=== PATIENT | female | born 1960 | race Caucasian/White ===

== ENCOUNTER 2021-09-03 21:18 | Inpatient (IN) | payer BC ==
[2021-09-03] MEDS ORDERED: Bisacodyl 5 MG TAB PO PRN (23:48)
[2021-09-03] MEDS ORDERED: Senokot S 8.6-50 MG TAB PO PRN (23:48)
[2021-09-03] MEDS ORDERED: HYDROcodone/Acetaminophen 7.5/325 mg Tablet PO PRN (23:48)
[2021-09-03] MEDS ORDERED: Ondansetron PF 4 MG/2 ML Vial IVP PRN (23:48)
[2021-09-03] MEDS ORDERED: hydrALAZINE 20 MG/ML VIAL SLOW IVP PRN (23:52)
[2021-09-03] MEDS ORDERED: Melatonin 3 MG TAB PO PRN (23:52)
[2021-09-03] MEDS ORDERED: Albuterol 200 PUFF (6.7GM INHALER) INH PRN (23:59)
[2021-09-04 00:44] VITALS: BMI 53.6
[2021-09-04] MEDS ORDERED: FLU VACC QS2021-22(6MOS UP)/PF 60 MCG/0.5 ML SYRINGE IM ONE (01:00)
[2021-09-04] MEDS ORDERED: Dextrose 5% in Water 1,000 ML IV PRN (01:10)
[2021-09-04] MEDS ORDERED: Dextrose 50% Abboject 50 ML SYRINGE SLOW IVP PRN (01:10)
[2021-09-04] MEDS ORDERED: Potassium Chloride 20 MEQ TAB PO SCH (01:30)
[2021-09-04] MEDS ORDERED: Pharmacy to Dose REMDESIVIR IVPB PRN (01:40)
[2021-09-04 02:18] LABS: Lactic Acid 1.2 mmol/L (0.5-2.2)
[2021-09-04 02:26] LABS: Troponin I 0.013 ng/mL (< 0.028)
[2021-09-04 05:27] LABS: #Lymphocytes 1.2 thou/uL (1.20-3.40); #Monocytes 0.7 thou/uL (0.11-0.59); #Neutrophils 13.6 thou/uL (1.40-6.50); %Basophils 0.2 % (0.0-1.0); %Eosinophils 0.2 % (0.0-10.0); %Lymphocytes 7.6 % (21.0-51.0); %Monocytes 4.7 % (0.0-10.0); %Neutrophils 87.4 % (42.0-75.0); Hemoglobin 13.4 g/dL (12.0-16.0); Mean Corpuscular HGB CONC 32.7 g/dL (32.0-36.0); Mean Corpuscular Volume 94.9 fL (78.0-98.0); Mean Platelet Volume 7.5 fL (7.4-10.4); Platelet Count 300 thou/uL (130-400); RBC Distribution Width 12.4 % (11.5-14.5); Red Blood Cell (RBC) Count 4.33 mill/uL (4.20-5.40); White Blood Cell (WBC) Count 15.6 thou/uL (4.8-10.8)
[2021-09-04 05:51] LABS: Hemoglobin A1c 7.4 % (4.0-6.0)
[2021-09-04 05:59] LABS: Troponin I 0.018 ng/mL (< 0.028)
[2021-09-04 06:01] LABS: ALT (SGPT) 37 U/L (8-55); AST (SGOT) 33 U/L (5-34); Albumin 3.1 g/dL (3.4-4.8); Alkaline Phosphatase 49 U/L (40-110); Anion Gap 14 mmol/L (10-20); BUN (Urea Nitrogen) 23 mg/dL (9.8-20.1); Bilirubin, Total 0.4 mg/dL (0.2-1.2); Calc. Creatinine Clearance 123 mL/min (70-130); Calcium 7.8 mg/dL (7.8-10.44); Carbon Dioxide 25 mmol/L (23-31); Cardiac Risk 3.2 (Less than 4.5); Chloride 104 mmol/L (98-107); Cholesterol 110 mg/dl (< 200 Desired); Globulin 2.8 g/dL (2.4-3.5); Glucose 408 mg/dL (80-115); HDL Cholesterol 34 mg/dL (>60 Neg Risk); LDL Cholesterol, Calculated 44 mg/dL; Potassium 3.5 mmol/L (3.5-5.1); Protein, Total 5.9 g/dL (5.8-8.1); Sodium 139 mmol/L (136-145); Triglycerides 158 mg/dL (Less than 150)
[2021-09-04] MEDS: Insulin Regular 300 UNITS/3 ML VIAL SC PRN ×4 (06:34→20:35)
[2021-09-04] MEDS: Cholecalciferol 1,000 UNITS (25 MCG) TAB PO SCH (08:41)
[2021-09-04] MEDS: Famotidine/PF 20 mg/2ml Vial SLOW IVP SCH (08:43)
[2021-09-04] MEDS: Ascorbic Acid 500 mg Chewable Tablet PO SCH (08:43)
[2021-09-04] MEDS: Guaifenesin DM 100-10/5 ML UDCUP PO PRN (08:43)
[2021-09-04] MEDS: Zinc Sulfate 220 MG CAP PO SCH (08:43)
[2021-09-04] MEDS: Enoxaparin Sodium 40 MG/0.4 ML SYRINGE SC SCH (08:44)
[2021-09-04] MEDS: Cefepime 2 GM in Sodium Chloride 0.9% 100 ML IVPB SCH ×2 (08:44→20:34)
[2021-09-04] MEDS: Dexamethasone 10 MG/ML VIAL SLOW IVP SCH ×2 (08:46→20:35)
[2021-09-04] MEDS: Acetaminophen 325 MG TAB PO PRN ×2 (08:47→16:46)
[2021-09-04] MEDS ORDERED: Lisinopril 20 MG TAB PO SCH (09:30)
[2021-09-04] MEDS ORDERED: Amlodipine 10 MG TAB PO SCH (09:30)
[2021-09-04] MEDS ORDERED: Lantus 1000 UNITS/10 ML VIAL SC SCH (09:45)
[2021-09-04] MEDS: Labetalol HCl 100 MG/20 ML VIAL SLOW IVP PRN (20:34)
[2021-09-04] MEDS: Simvastatin 10 MG TAB PO SCH (21:11)
[2021-09-05 05:43] LABS: Hemoglobin 13.7 g/dL (12.0-16.0); Lymphocytes 11 % (21-51); MDiff Complete? YES; Mean Corpuscular Hemoglobin 29.1 pg (27.0-31.0); Mean Corpuscular Volume 93.8 fL (78.0-98.0); Mean Platelet Volume 7.6 fL (7.4-10.4); Monocytes 9 % (0-10); Neutrophil 80 % (42-75); Platelet Count 355 thou/uL (130-400); Platelet Morphology Comment Appears Adequate; RBC Distribution Width 12.4 % (11.5-14.5); RBC Morphology Normal; Red Blood Cell (RBC) Count 4.72 mill/uL (4.20-5.40); White Blood Cell (WBC) Count 18.1 thou/uL (4.8-10.8)
[2021-09-05 05:44] LABS: Anion Gap 13 mmol/L (10-20); BUN (Urea Nitrogen) 21 mg/dL (9.8-20.1); Calc. Creatinine Clearance 153 mL/min (70-130); Calcium 8.1 mg/dL (7.8-10.44); Carbon Dioxide 25 mmol/L (23-31); Chloride 104 mmol/L (98-107); Glucose 301 mg/dL (80-115); Potassium 3.8 mmol/L (3.5-5.1); Sodium 138 mmol/L (136-145)
[2021-09-05] MEDS: Insulin Regular 300 UNITS/3 ML VIAL SC PRN ×4 (05:55→20:52)
[2021-09-05] MEDS: Cholecalciferol 1,000 UNITS (25 MCG) TAB PO SCH (08:04)
[2021-09-05] MEDS: Dexamethasone 10 MG/ML VIAL SLOW IVP SCH (08:05)
[2021-09-05] MEDS: Ascorbic Acid 500 mg Chewable Tablet PO SCH (08:05)
[2021-09-05] MEDS: Lisinopril 20 MG TAB PO SCH (08:05)
[2021-09-05] MEDS: Zinc Sulfate 220 MG CAP PO SCH (08:05)
[2021-09-05] MEDS: Famotidine/PF 20 mg/2ml Vial SLOW IVP SCH (08:06)
[2021-09-05] MEDS: Enoxaparin Sodium 40 MG/0.4 ML SYRINGE SC SCH (08:06)
[2021-09-05] MEDS: Amlodipine 10 MG TAB PO SCH (08:07)
[2021-09-05] MEDS: Cefepime 2 GM in Sodium Chloride 0.9% 100 ML IVPB SCH ×2 (08:07→21:04)
[2021-09-05] MEDS: Lantus 1000 UNITS/10 ML VIAL SC SCH ×2 (08:08→20:54)
[2021-09-05] MEDS ORDERED: Pharmacy to Dose BARICITINIB IVPB PRN (10:56)
[2021-09-05] MEDS ORDERED: Icosapent Ethyl 1 GM CAPSULE PO SCH (21:00)
[2021-09-05] MEDS: Icosapent Ethyl 1 GM CAPSULE PO SCH ×2 (21:03→21:39)
[2021-09-05] MEDS: Famotidine 20 MG TAB PO SCH (21:04)
[2021-09-05] MEDS: Enoxaparin Sodium 60 MG/0.6 ML SYRINGE SC SCH (21:06)
[2021-09-05] MEDS: Simvastatin 10 MG TAB PO SCH (22:40)
[2021-09-06 01:44] LABS: Vancomycin, Trough 7.4 ug/mL
[2021-09-06] MEDS: Labetalol HCl 100 MG/20 ML VIAL SLOW IVP PRN (03:45)
[2021-09-06 05:29] LABS: Mean Corpuscular HGB CONC 33.3 g/dL (32.0-36.0); Mean Corpuscular Hemoglobin 31.2 pg (27.0-31.0); Mean Corpuscular Volume 93.5 fL (78.0-98.0); Mean Platelet Volume 7.4 fL (7.4-10.4); Platelet Count 364 thou/uL (130-400); RBC Distribution Width 12.4 % (11.5-14.5); Red Blood Cell (RBC) Count 4.48 mill/uL (4.20-5.40)
[2021-09-06 05:54] LABS: Anion Gap 12 mmol/L (10-20); BUN (Urea Nitrogen) 21 mg/dL (9.8-20.1); Calc. Creatinine Clearance 163 mL/min (70-130); Calcium 7.9 mg/dL (7.8-10.44); Carbon Dioxide 24 mmol/L (23-31); Chloride 104 mmol/L (98-107); Glucose 252 mg/dL (80-115); Potassium 3.4 mmol/L (3.5-5.1); Sodium 137 mmol/L (136-145)
[2021-09-06] MEDS: Insulin Regular 300 UNITS/3 ML VIAL SC PRN ×4 (06:02→20:08)
[2021-09-06 06:03] LABS: Band 3 % (5-11); Lymphocytes 7 % (21-51); MDiff Complete? YES; Monocytes 12 % (0-10); Myelocyte 1 % (0-0); Neutrophil 77 % (42-75)
[2021-09-06] MEDS: Enoxaparin Sodium 60 MG/0.6 ML SYRINGE SC SCH ×2 (07:42→20:07)
[2021-09-06] MEDS: Lantus 1000 UNITS/10 ML VIAL SC SCH ×2 (07:43→20:08)
[2021-09-06] MEDS: Dexamethasone 10 MG/ML VIAL SLOW IVP SCH (07:43)
[2021-09-06] MEDS: Lisinopril 20 MG TAB PO SCH (07:44)
[2021-09-06] MEDS: Famotidine 20 MG TAB PO SCH ×2 (07:45→20:07)
[2021-09-06] MEDS: Zinc Sulfate 220 MG CAP PO SCH (07:45)
[2021-09-06] MEDS: Ascorbic Acid 500 mg Chewable Tablet PO SCH (07:45)
[2021-09-06] MEDS: Amlodipine 10 MG TAB PO SCH (07:45)
[2021-09-06] MEDS: Cholecalciferol 1,000 UNITS (25 MCG) TAB PO SCH (07:45)
[2021-09-06] MEDS: Icosapent Ethyl 1 GM CAPSULE PO SCH ×2 (07:46→20:07)
[2021-09-06] MEDS: Cefepime 2 GM in Sodium Chloride 0.9% 100 ML IVPB SCH (07:46)
[2021-09-06] MEDS: Simvastatin 10 MG TAB PO SCH (20:07)
[2021-09-07 05:49] LABS: Hemoglobin 13.7 g/dL (12.0-16.0); Mean Corpuscular HGB CONC 33.3 g/dL (32.0-36.0); Mean Corpuscular Hemoglobin 30.7 pg (27.0-31.0); Mean Corpuscular Volume 92.2 fL (78.0-98.0); Mean Platelet Volume 7.5 fL (7.4-10.4); Platelet Count 380 thou/uL (130-400); RBC Distribution Width 12.4 % (11.5-14.5); Red Blood Cell (RBC) Count 4.46 mill/uL (4.20-5.40); White Blood Cell (WBC) Count 16.9 thou/uL (4.8-10.8)
[2021-09-07 06:03] LABS: Anion Gap 10 mmol/L (10-20); BUN (Urea Nitrogen) 25 mg/dL (9.8-20.1); Calc. Creatinine Clearance 159 mL/min (70-130); Carbon Dioxide 27 mmol/L (23-31); Chloride 103 mmol/L (98-107); Glucose 237 mg/dL (80-115); Potassium 3.1 mmol/L (3.5-5.1); Sodium 137 mmol/L (136-145)
[2021-09-07] MEDS: Insulin Regular 300 UNITS/3 ML VIAL SC PRN ×4 (06:34→20:15)
[2021-09-07 08:29] LABS: Band 2 % (5-11); Lymphocytes 24 % (21-51); MDiff Complete? YES; Monocytes 5 % (0-10); Neutrophil 69 % (42-75); Nucleated RBC 1 % (0)
[2021-09-07] MEDS: Cholecalciferol 1,000 UNITS (25 MCG) TAB PO SCH (09:35)
[2021-09-07] MEDS: Ascorbic Acid 500 mg Chewable Tablet PO SCH (09:36)
[2021-09-07] MEDS: Guaifenesin DM 100-10/5 ML UDCUP PO PRN (09:36)
[2021-09-07] MEDS: Amlodipine 10 MG TAB PO SCH (09:37)
[2021-09-07] MEDS: Lisinopril 20 MG TAB PO SCH (09:37)
[2021-09-07] MEDS: HYDROcodone/Acetaminophen 5/325 mg Tablet PO PRN (09:38)
[2021-09-07] MEDS: Famotidine 20 MG TAB PO SCH ×2 (09:38→20:14)
[2021-09-07] MEDS: Icosapent Ethyl 1 GM CAPSULE PO SCH ×2 (09:39→20:13)
[2021-09-07] MEDS: Dexamethasone 10 MG/ML VIAL SLOW IVP SCH (09:40)
[2021-09-07] MEDS: Enoxaparin Sodium 60 MG/0.6 ML SYRINGE SC SCH ×2 (09:41→20:14)
[2021-09-07] MEDS: Lantus 1000 UNITS/10 ML VIAL SC SCH ×2 (09:41→20:15)
[2021-09-07] MEDS: Zinc Sulfate 220 MG CAP PO SCH (09:44)
[2021-09-07] MEDS ORDERED: Furosemide 20 MG TAB PO SCH (15:15)
[2021-09-07] MEDS ORDERED: Potassium Chloride 20 MEQ TAB PO SCH (15:15)
[2021-09-07] MEDS: Simvastatin 10 MG TAB PO SCH (20:13)
[2021-09-08 06:12] LABS: Hemoglobin 14.2 g/dL (12.0-16.0); Mean Corpuscular HGB CONC 32.8 g/dL (32.0-36.0); Mean Corpuscular Hemoglobin 30.2 pg (27.0-31.0); Mean Corpuscular Volume 91.9 fL (78.0-98.0); Mean Platelet Volume 7.7 fL (7.4-10.4); Platelet Count 371 thou/uL (130-400); RBC Distribution Width 12.4 % (11.5-14.5); Red Blood Cell (RBC) Count 4.71 mill/uL (4.20-5.40); White Blood Cell (WBC) Count 16.4 thou/uL (4.8-10.8)
[2021-09-08] MEDS: Insulin Regular 300 UNITS/3 ML VIAL SC PRN ×4 (06:14→20:07)
[2021-09-08 06:16] LABS: ALT (SGPT) 50 U/L (8-55); AST (SGOT) 22 U/L (5-34); Albumin 2.8 g/dL (3.4-4.8); Alkaline Phosphatase 48 U/L (40-110); Anion Gap 13 mmol/L (10-20); BUN (Urea Nitrogen) 22 mg/dL (9.8-20.1); Bilirubin, Total 0.4 mg/dL (0.2-1.2); Calc. Creatinine Clearance 165 mL/min (70-130); Carbon Dioxide 24 mmol/L (23-31); Chloride 103 mmol/L (98-107); Globulin 2.8 g/dL (2.4-3.5); Glucose 197 mg/dL (80-115); Protein, Total 5.6 g/dL (5.8-8.1); Sodium 136 mmol/L (136-145)
[2021-09-08 06:46] LABS: Band 5 % (5-11); Lymphocytes 10 % (21-51); MDiff Complete? YES; Metamyelocyte 1 % (0-0); Monocytes 9 % (0-10); Myelocyte 2 % (0-0); Neutrophil 73 % (42-75); Platelet Morphology Comment Appears Adequate; RBC Morphology Normal
[2021-09-08] MEDS: Cholecalciferol 1,000 UNITS (25 MCG) TAB PO SCH (09:31)
[2021-09-08] MEDS: Potassium Chloride 20 MEQ TAB PO SCH (09:33)
[2021-09-08] MEDS: Lisinopril 20 MG TAB PO SCH (09:33)
[2021-09-08] MEDS: Ascorbic Acid 500 mg Chewable Tablet PO SCH (09:33)
[2021-09-08] MEDS: Amlodipine 10 MG TAB PO SCH (09:33)
[2021-09-08] MEDS: Zinc Sulfate 220 MG CAP PO SCH (09:34)
[2021-09-08] MEDS: Icosapent Ethyl 1 GM CAPSULE PO SCH ×2 (09:34→20:06)
[2021-09-08] MEDS: Dexamethasone 10 MG/ML VIAL SLOW IVP SCH (09:35)
[2021-09-08] MEDS: Furosemide 40 MG TAB PO SCH (09:36)
[2021-09-08] MEDS: Enoxaparin Sodium 60 MG/0.6 ML SYRINGE SC SCH ×2 (09:36→20:06)
[2021-09-08] MEDS: Famotidine 20 MG TAB PO SCH ×2 (09:37→20:06)
[2021-09-08] MEDS: Guaifenesin DM 100-10/5 ML UDCUP PO PRN (09:37)
[2021-09-08] MEDS: Lantus 1000 UNITS/10 ML VIAL SC SCH ×2 (09:38→20:05)
[2021-09-08] MEDS: HYDROcodone/Acetaminophen 5/325 mg Tablet PO PRN (09:39)
[2021-09-08] MEDS ORDERED: Loperamide HCl 1 MG/7.5 ML UDCUP PO PRN (10:26)
[2021-09-08] MEDS: Simvastatin 10 MG TAB PO SCH (20:06)
[2021-09-09 06:30] LABS: Hemoglobin 14.2 g/dL (12.0-16.0); Mean Corpuscular HGB CONC 32.9 g/dL (32.0-36.0); Mean Corpuscular Hemoglobin 30.7 pg (27.0-31.0); Mean Corpuscular Volume 93.4 fL (78.0-98.0); Mean Platelet Volume 7.5 fL (7.4-10.4); Platelet Count 355 thou/uL (130-400); RBC Distribution Width 12.5 % (11.5-14.5); Red Blood Cell (RBC) Count 4.63 mill/uL (4.20-5.40)
[2021-09-09 07:23] LABS: Anion Gap 15 mmol/L (10-20); BUN (Urea Nitrogen) 26 mg/dL (9.8-20.1); Calc. Creatinine Clearance 177 mL/min (70-130); Calcium 8.1 mg/dL (7.8-10.44); Carbon Dioxide 25 mmol/L (23-31); Chloride 102 mmol/L (98-107); Glucose 165 mg/dL (80-115); Potassium 4.7 mmol/L (3.5-5.1); Sodium 137 mmol/L (136-145)
[2021-09-09 08:50] LABS: Band 2 % (5-11); Lymphocytes 15 % (21-51); MDiff Complete? YES; Metamyelocyte 5 % (0-0); Monocytes 7 % (0-10); Myelocyte 1 % (0-0); Neutrophil 70 % (42-75); Platelet Morphology Comment Appears Adequate; Polychromasia SLIGHT = 2-3 cells (100X) (0-2/hpf)
[2021-09-09] MEDS: Amlodipine 10 MG TAB PO SCH (09:04)
[2021-09-09] MEDS: Famotidine 20 MG TAB PO SCH ×2 (09:05→20:23)
[2021-09-09] MEDS: Cholecalciferol 1,000 UNITS (25 MCG) TAB PO SCH (09:05)
[2021-09-09] MEDS: HYDROcodone/Acetaminophen 5/325 mg Tablet PO PRN (09:09)
[2021-09-09] MEDS: Lisinopril 20 MG TAB PO SCH (09:10)
[2021-09-09] MEDS: Furosemide 40 MG TAB PO SCH (09:10)
[2021-09-09] MEDS: Potassium Chloride 20 MEQ TAB PO SCH (09:10)
[2021-09-09] MEDS: Ascorbic Acid 500 mg Chewable Tablet PO SCH (09:10)
[2021-09-09] MEDS: Guaifenesin DM 100-10/5 ML UDCUP PO PRN (09:11)
[2021-09-09] MEDS: Enoxaparin Sodium 60 MG/0.6 ML SYRINGE SC SCH ×2 (09:11→20:23)
[2021-09-09] MEDS: Icosapent Ethyl 1 GM CAPSULE PO SCH ×2 (09:11→20:23)
[2021-09-09] MEDS: Zinc Sulfate 220 MG CAP PO SCH (09:11)
[2021-09-09] MEDS: Dexamethasone 10 MG/ML VIAL SLOW IVP SCH (09:12)
[2021-09-09] MEDS: Lantus 1000 UNITS/10 ML VIAL SC SCH ×2 (09:14→20:39)
[2021-09-09] MEDS: Insulin Regular 300 UNITS/3 ML VIAL SC PRN ×3 (11:29→20:36)
[2021-09-09] MEDS: Simvastatin 10 MG TAB PO SCH (20:41)
[2021-09-10 05:57] LABS: Hemoglobin 14.6 g/dL (12.0-16.0); Mean Corpuscular Hemoglobin 30.7 pg (27.0-31.0); Mean Corpuscular Volume 92.8 fL (78.0-98.0); Mean Platelet Volume 7.7 fL (7.4-10.4); Platelet Count 397 thou/uL (130-400); RBC Distribution Width 12.5 % (11.5-14.5); Red Blood Cell (RBC) Count 4.77 mill/uL (4.20-5.40); White Blood Cell (WBC) Count 20.6 thou/uL (4.8-10.8)
[2021-09-10 06:20] LABS: Anion Gap 13 mmol/L (10-20); BUN (Urea Nitrogen) 27 mg/dL (9.8-20.1); Calc. Creatinine Clearance 166 mL/min (70-130); Calcium 8.6 mg/dL (7.8-10.44); Carbon Dioxide 28 mmol/L (23-31); Chloride 101 mmol/L (98-107); Glucose 174 mg/dL (80-115); Potassium 4.4 mmol/L (3.5-5.1); Sodium 138 mmol/L (136-145)
[2021-09-10 06:35] LABS: Band 2 % (5-11); Lymphocytes 13 % (21-51); MDiff Complete? YES; Monocytes 6 % (0-10); Myelocyte 1 % (0-0); Neutrophil 77 % (42-75); Reactive Lymphocytes 1 % (0-10)
[2021-09-10] MEDS: Insulin Regular 300 UNITS/3 ML VIAL SC PRN ×4 (06:45→20:02)
[2021-09-10] MEDS ORDERED: Dexamethasone 10 MG/ML VIAL SLOW IVP SCH (07:24)
[2021-09-10] MEDS: Lantus 1000 UNITS/10 ML VIAL SC SCH ×2 (09:26→20:02)
[2021-09-10] MEDS: Icosapent Ethyl 1 GM CAPSULE PO SCH ×2 (09:28→20:01)
[2021-09-10] MEDS: Lisinopril 20 MG TAB PO SCH (09:29)
[2021-09-10] MEDS: Potassium Chloride 20 MEQ TAB PO SCH (09:29)
[2021-09-10] MEDS: Amlodipine 10 MG TAB PO SCH (09:29)
[2021-09-10] MEDS: Famotidine 20 MG TAB PO SCH ×2 (09:30→20:01)
[2021-09-10] MEDS: Zinc Sulfate 220 MG CAP PO SCH (09:30)
[2021-09-10] MEDS: Furosemide 40 MG TAB PO SCH (09:30)
[2021-09-10] MEDS: Ascorbic Acid 500 mg Chewable Tablet PO SCH (09:31)
[2021-09-10] MEDS: Dexamethasone 4 mg/ml Vial SLOW IVP SCH (09:31)
[2021-09-10] MEDS: Enoxaparin Sodium 60 MG/0.6 ML SYRINGE SC SCH ×2 (09:31→20:00)
[2021-09-10] MEDS: Cholecalciferol 1,000 UNITS (25 MCG) TAB PO SCH (09:38)
[2021-09-10] MEDS: Simvastatin 10 MG TAB PO SCH (20:01)
[2021-09-11 06:09] LABS: #Eosinphils 0.1 thou/uL (0.0-0.7); #Lymphocytes 3.7 thou/uL (1.20-3.40); #Monocytes 1.6 thou/uL (0.11-0.59); #Neutrophils 13.6 thou/uL (1.40-6.50); %Eosinophils 0.4 % (0.0-10.0); %Lymphocytes 19.4 % (21.0-51.0); %Monocytes 8.6 % (0.0-10.0); %Neutrophils 71.5 % (42.0-75.0); Hemoglobin 14.2 g/dL (12.0-16.0); Mean Corpuscular HGB CONC 31.9 g/dL (32.0-36.0); Mean Corpuscular Hemoglobin 30.3 pg (27.0-31.0); Mean Corpuscular Volume 94.8 fL (78.0-98.0); Mean Platelet Volume 7.7 fL (7.4-10.4); Platelet Count 380 thou/uL (130-400); RBC Distribution Width 12.7 % (11.5-14.5); Red Blood Cell (RBC) Count 4.68 mill/uL (4.20-5.40); White Blood Cell (WBC) Count 19.1 thou/uL (4.8-10.8)
[2021-09-11 06:18] LABS: Anion Gap 14 mmol/L (10-20); BUN (Urea Nitrogen) 32 mg/dL (9.8-20.1); Calc. Creatinine Clearance 160 mL/min (70-130); Calcium 8.5 mg/dL (7.8-10.44); Carbon Dioxide 27 mmol/L (23-31); Chloride 100 mmol/L (98-107); Glucose 114 mg/dL (80-115); Sodium 137 mmol/L (136-145)
[2021-09-11] MEDS: Lantus 1000 UNITS/10 ML VIAL SC SCH (09:13)
[2021-09-11] MEDS: Cholecalciferol 1,000 UNITS (25 MCG) TAB PO SCH (09:14)
[2021-09-11] MEDS: Lisinopril 20 MG TAB PO SCH (09:16)
[2021-09-11] MEDS: Amlodipine 10 MG TAB PO SCH (09:16)
[2021-09-11] MEDS: Ascorbic Acid 500 mg Chewable Tablet PO SCH (09:16)
[2021-09-11] MEDS: Zinc Sulfate 220 MG CAP PO SCH (09:16)
[2021-09-11] MEDS: Famotidine 20 MG TAB PO SCH (09:17)
[2021-09-11] MEDS: Potassium Chloride 20 MEQ TAB PO SCH (09:17)
[2021-09-11] MEDS: Icosapent Ethyl 1 GM CAPSULE PO SCH (09:18)
[2021-09-11] MEDS: Enoxaparin Sodium 60 MG/0.6 ML SYRINGE SC SCH (09:18)
[2021-09-11] MEDS ORDERED: guaiFENesin ER 600 MG TAB PO SCH (10:00)
[2021-09-11] MEDS: Furosemide 40 MG TAB PO SCH (10:14)
[2021-09-11 12:11] VITALS: BP 106/53; TEMP 98.2
[2021-09-11] MEDS: Dexamethasone 4 mg/ml Vial SLOW IVP SCH (12:27)
[2021-09-11] MEDS: Insulin Regular 300 UNITS/3 ML VIAL SC PRN (12:27)
== END 2021-09-11 16:30 | disposition home or self-care (01) | DRG 871 ==
LOC: 2SW 22:31
PROVIDERS: ADMIT Internal Medicine; ATTEND Family Medicine
PROC: 8E0ZXY6 Isolation (ICD-10-PCS; principal; 2021-09-03)
DX: A41.89 Other specified sepsis (principal); U07.1 COVID-19; J12.82 Pneumonia due to coronavirus disease 2019; J96.01 Acute respiratory failure with hypoxia; N17.9 Acute kidney failure, unspecified; I47.1 Supraventricular tachycardia; Z68.43 Body mass index [BMI] 50.0-59.9, adult; Z66 Do not resuscitate; I10 Essential (primary) hypertension; E11.65 Type 2 diabetes mellitus with hyperglycemia; R77.8 Other specified abnormalities of plasma proteins; E87.6 Hypokalemia; E66.01 Morbid (severe) obesity due to excess calories; Z88.8 Allergy status to other drugs, medicaments and biological substances; Z79.899 Other long term (current) drug therapy; Z90.710 Acquired absence of both cervix and uterus
CPT/HCPCS: 36415; 36416; 71045; 71046; 80048; 80053; 80061; 80202; 82728; 83036; 83605; 83880; 84145; 84484; 85025; 85379; 86140; J0360; J0692; J1100; J1650; J1815; J3370; J3490; J7030; S0028